=== PATIENT | male | born 1995 | race Caucasian/White ===

== ENCOUNTER 2016-09-15 02:11 | Emergency (ER) | payer OTHER ==
[~2016-09-15] VITALS: Ht 167.6 cm; Wt 74.5 kg
[2016-09-15] MEDS ORDERED: IBUP1TAB7 PO (03:02)
--- NOTE | 2016-09-15 04:40 | REPUSA ---
HISTORY: Trauma. COMPARISON: TECHNIQUE: Multiple thin section helically-acquired axially-displayed and helically acquired coronall y displayed computed tomographic images of the face are obtained from the mandible through the fronta l sinuses, with images obtained at soft tissue and bone window. 2D reformatted images were performed. FINDINGS: Mild chronic mucosal inflammatory changes in the maxillary sinuses and ethmoid air cells. Normal bony mineralization. No fractures. Normal orbits. Normal oral and nasal cavities. Normal infratemporal fossa and deep parapharyngeal spaces with normal muscles of mastication. Normal parotid and submandibular glands. 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 No fracture. Thank you for your kind referral of this patient
[2016-09-15 04:59] VITALS: BP 124/72
== END 2016-09-15 05:00 | disposition home or self-care (01) ==
LOC: M ED 02:11
DX: S09.90XA Unspecified injury of head, initial encounter (principal); Z72.0 Tobacco use; Y04.0XXA Assault by unarmed brawl or fight, initial encounter; Y92.410 Unspecified street and highway as the place of occurrence of the external cause; Y93.89 Activity, other specified; Y99.9 Unspecified external cause status